=== PATIENT | female | born 1995 | race Two or more races ===

== ENCOUNTER 2020-07-19 21:42 | Emergency (ER) | payer MEDICAID, OTHER ==
[~2020-07-19] VITALS: Ht 162.6 cm; Wt 56.2 kg
[2020-07-19 21:56] VITALS: BP 109/72
== END 2020-07-19 22:11 | disposition left against medical advice (07) ==
LOC: ER 21:44
DX: J02.9 Acute pharyngitis, unspecified (principal); R09.81 Nasal congestion; Z53.21 Procedure and treatment not carried out due to patient leaving prior to being seen by health care provider